=== PATIENT | female | born 1990 | race African-American/Black ===

== ENCOUNTER 2019-10-20 11:22 | Emergency (ER) | payer MEDICAID, SELFPAY ==
--- NOTE | 2019-10-20 12:19 | ULT ---
ULTRASOUND DOPPLER DUPLEX VENOUS RIGHT LOWER EXTREMITY: DATE: 10/20/2019 HISTORY: 29-year-old female with right lower extremity edema TECHNIQUE: Grayscale, color-flow, and spectral analysis, of major veins of right lower extremity. FINDINGS: There is demonstration of blood flow with normal compressibility, of the right common femoral, profun da femoral, greater saphenous, femoral, popliteal, and posterior tibial, veins. IMPRESSION: Negative. No deep venous thrombosis of right lower extremity.
== END 2019-10-20 12:41 | disposition home or self-care (01) ==
LOC: ERS 11:22
DX: M79.89 Other specified soft tissue disorders (principal); M79.661 Pain in right lower leg; M25.561 Pain in right knee; F41.9 Anxiety disorder, unspecified; F32.9 Major depressive disorder, single episode, unspecified